=== PATIENT | male | born 1985 | race Two or more races ===

== ENCOUNTER 2021-05-10 11:19 | Inpatient (IN) | payer OTHER ==
[~2021-05-10] VITALS: Ht 167.6 cm; Wt 84.6 kg
[2021-05-10] MEDS ORDERED: CloNIDine HCL 0.1 MG TABLET PO ONE (12:30)
[2021-05-10] MEDS ORDERED: ACETAMINOPHEN 325 MG TABLET PO PRN (12:30)
[2021-05-10] MEDS ORDERED: HydrOXYzine PAMOATE 50 MG CAPSULE PO ONE (12:30)
[2021-05-10] MEDS ORDERED: MAGNESIUM HYDROXIDE SUSPENSION 30 ML UDCUP PO PRN (12:45)
[2021-05-10] MEDS ORDERED: ONDANSETRON HCL 4 MG/2 ML VIAL IVP PRN (12:45)
[2021-05-10 13:21] LABS: BASOPHILS % (AUTO) 0.8 % (0.0-2.0); EOSINOPHILS % (AUTO) 0.2 % (1.0-6.0); HEMATOCRIT 45.8 % (41-53); HEMOGLOBIN 15.2 g/dL (13.5-17.5); LYMPHOCYTES # (AUTO) 2.2 K/uL (1.0-4.8); LYMPHOCYTES % (AUTO) 16.3 % (22.0-44.0); MEAN CORPUSCULAR HEMOGLOBIN 29.7 pg (26.0-34.0); MEAN CORPUSCULAR HGB CONC 33.2 G/dL (31.0-37.0); MEAN CORPUSCULAR VOLUME 89 fL (80-100); MONOCYTES # (AUTO) 0.9 K/uL (0.1-1.0); MONOCYTES % (AUTO) 6.6 % (2.0-9.0); NEUTROPHILS # (AUTO) 10.1 K/uL (1.8-7.7); NEUTROPHILS % (AUTO) 76.1 % (40.0-70.0); PLATELET COUNT (AUTO) 325 K/uL (150-450); RED BLOOD CELL COUNT(AUTO) 5.13 MIL/uL (4.50-5.90)
[2021-05-10 13:37] LABS: ANION GAP 7 mmol/L (8-16); CALCIUM, TOTAL 8.7 mg/dL (8.8-10.5); CARBON DIOXIDE 30 mmol/L (22-29); CHLORIDE 103 mmol/L (98-107); CREATININE 0.92 mg/dL (0.60-1.30); GLOMERULAR FILTR. RATE CALC > 60 mL/min (>60); GLUCOSE,RANDOM 131 mg/dL (70-110); POTASSIUM 4.5 mmol/L (3.5-5.1); SODIUM SERUM 140 mmol/L (136-145); UREA NITROGEN, BLOOD 12 mg/dL (7-18)
[2021-05-10 13:42] LABS: ALANINE AMINOTRANSFERASE 61 U/L (12-78); ALKALINE PHOSPHATASE 70 U/L (46-116); ASPARTATE AMINOTRANSFERASE 48 U/L (15-37); BILIRUBIN,TOTAL 0.5 mg/dL (0.1-1.0)
[2021-05-10 14:02] LABS: COVID AG,FIA SOURCE NASOPHARYNGEAL
[2021-05-10 15:26] VITALS: BP 109/74
[2021-05-10 18:25] LABS: AMPHET/METH SCREEN,URINE NEGATIVE (NEGATIVE); BARBITURATE SCREEN, URINE NEGATIVE (NEGATIVE); BENZODIAZEPINES SCREEN,URINE NEGATIVE (NEGATIVE); CANNABINOID SCREEN,URINE NEGATIVE (NEGATIVE); COCAINE SCREEN,URINE NEGATIVE (NEGATIVE); METHADONE SCREEN, URINE POSITIVE (NEGATIVE); OPIATE SCREEN,URINE NEGATIVE (NEGATIVE); PHENCYCLIDINE SCREEN,URINE NEGATIVE (NEGATIVE)
[2021-05-10] MEDS ORDERED: INFLUENZA VIRUS VACCINE QVS 2021-22 (6MO+)/PF 60 MCG/0.5 ML SYRINGE IM. ONE (20:15)
[2021-05-10] MEDS ORDERED: PNEUMOCOCCAL VACCINE POLYVALENT 0.5 ML VIAL [PPSV23] IM. ONE (20:15)
[2021-05-10 20:27] VITALS: BP 115/68
[2021-05-10] MEDS: FAMOTIDINE 20 MG TABLET PO SCH (20:48)
[2021-05-10] MEDS: ZOLPIDEM TARTRATE 5 MG TABLET PO PRN (20:48)
[2021-05-10] MEDS: GABAPENTIN 100 MG CAPSULE PO SCH (21:37)
[2021-05-11] MEDS: LORazepam 0.5 MG TABLET PO PRN ×3 (03:28→19:33)
[2021-05-11 05:10] VITALS: BP 107/71
[2021-05-11 08:31] VITALS: BP 119/68
[2021-05-11] MEDS: ONDANSETRON HCL 4 MG TABLET PO PRN (08:42)
[2021-05-11] MEDS: FAMOTIDINE 20 MG TABLET PO SCH ×2 (08:42→20:32)
[2021-05-11] MEDS: GABAPENTIN 100 MG CAPSULE PO SCH ×2 (08:42→20:32)
[2021-05-11 11:35] VITALS: BP 121/62
[2021-05-11 15:43] VITALS: BP 119/73
[2021-05-11 19:36] VITALS: BP 120/74
[2021-05-11] MEDS: ZOLPIDEM TARTRATE 5 MG TABLET PO PRN (20:32)
[2021-05-12 03:44] VITALS: BP 123/72
[2021-05-12] MEDS: LORazepam 0.5 MG TABLET PO PRN (03:47)
[2021-05-12 08:16] VITALS: BP 108/75
[2021-05-12] MEDS: FAMOTIDINE 20 MG TABLET PO SCH ×2 (09:34→20:23)
[2021-05-12] MEDS: GABAPENTIN 100 MG CAPSULE PO SCH ×2 (09:35→20:23)
[2021-05-12] MEDS: ACETAMINOPHEN 325 MG TABLET PO PRN ×2 (09:37→18:30)
[2021-05-12 11:03] VITALS: BP 124/77
[2021-05-12] MEDS ORDERED: ZOLPIDEM TARTRATE 5 MG TABLET PO ONE (12:00)
[2021-05-12 15:46] VITALS: BP 122/75
[2021-05-12] MEDS: ONDANSETRON HCL 4 MG TABLET PO PRN (18:30)
[2021-05-12] MEDS: ZOLPIDEM TARTRATE 5 MG TABLET PO PRN (20:23)
[2021-05-12 20:30] VITALS: BP 108/71
[2021-05-13 04:35] VITALS: BP 127/72
[2021-05-13] MEDS: ACETAMINOPHEN 325 MG TABLET PO PRN ×2 (04:37→08:41)
[2021-05-13 08:14] VITALS: BP 115/76
[2021-05-13] MEDS: GABAPENTIN 100 MG CAPSULE PO SCH (08:41)
[2021-05-13] MEDS: FAMOTIDINE 20 MG TABLET PO SCH (08:41)
[2021-05-13] MEDS ORDERED: GABA-1216 PO (10:37)
== END 2021-05-13 11:44 | DRG 897 ==
LOC: EMS 11:23 → 6S 13:07
PROVIDERS: ADMIT Internal Medicine; ATTEND Internal Medicine
DX: F11.13 Opioid abuse with withdrawal (principal); Z20.822 Contact with and (suspected) exposure to COVID-19; Z79.899 Other long term (current) drug therapy
CPT/HCPCS: 80053; 85025; 99285; G0480; Q0162